=== PATIENT | female | born 1990 | race African-American/Black ===

== ENCOUNTER 2016-09-22 12:38 | Emergency (ER) | payer OTHER ==
[~2016-09-22] VITALS: Ht 157.5 cm; Wt 44.5 kg
[~2016-09-22 12:38] MED LIST: AMOX1TAB61 PO; FERR325T58 PO; HYDR-971 PO; NAPR500T3 PO; OXYC-323 PO; PNV1TABL25 PO
[2016-09-22] MEDS ORDERED: IV NORMAL SALINE 1000ML BAG 1,000 ML IV SCH (13:49)
[2016-09-22] MEDS ORDERED: ONDANSETRON PF 4 MG/2 ML VIAL. IV ONE (14:00)
[2016-09-22] MEDS ORDERED: MORPHINE SULFATE 4 MG/ML DISP.SYRIN. IV ONE (14:00)
[2016-09-22] MEDS ORDERED: IOHEXOL 300 MG/ML 75 ML VIAL IV ONE (14:15)
[2016-09-22] MEDS ORDERED: CONTRAST GIVEN MC PRN (14:15)
[2016-09-22 14:16] LABS: BILIRUBIN,URINE NEGATIVE (NEG); GLUCOSE,URINE NEGATIVE (NEG); NITRITE,URINE NEGATIVE (NEG); PROTEIN,URINE NEGATIVE (NEG-TRACE); UROBILINOGEN,URINE 0.2 mg/dL (0.2 mg/dL)
[2016-09-22 14:17] LABS: BASO % 0 % (0-3); EOS % 1 % (0-3); HEMATOCRIT 32.1 % (36.0-47.0); HEMOGLOBIN 10.5 g/dL (12.0-15.5); LYMPH # 1.5 x10^3/uL (1.0-4.8); LYMPH % 21 % (24-48); MEAN CORPUSCULAR HEMOGLOBIN 29 pg (25-35); MEAN CORPUSCULAR HGB CONC 33 g/dL (31-37); MEAN CORPUSCULAR VOLUME 90 fL (79-100); MONO % 6 % (0-9); NEUT % 72 % (31-73); PLATELET COUNT 189 x10^3/uL (140-400); RED BLOOD COUNT 3.58 x10^6/uL (3.50-5.40); RED CELL DISTRIBUTION WIDTH 14.3 % (11.5-14.5)
--- NOTE | 2016-09-22 14:21 | PHYS DOC ---
Past Medical History Past Medical History: Other Additional Past Medical Histor: scoliosis Past Surgical History: Alcohol Use: None Drug Use: None Adult General Chief Complaint Chief Complaint: ABDOMINAL PAIN HPI HPI Patient is a 26 year old female who presents with right lower quadrant pain. Patient reports she has had pain since last Thursday. She describes a stabbing/ cramping pain that is worse with movement. It ss accompanied by nausea and fatigue. She did vomit yesterday but none today. She took aspirin for yesterday with insufficient relief. Patient reports a similar episode a couple weeks ago that resolved spontaneously. No urinary symptoms, no vaginal bleeding or discharge. LMP started 09/18. Review of Systems Review of Systems Constitutional: Denies fever or chills Eyes: Denies change in visual acuity or eye pain HENT: Denies nasal congestion or sore throat Respiratory: Denies cough or shortness of breath Cardiovascular: Denies chest pain GI: RLQ abdominal pain, nausea. Denies bloody stools or diarrhea : Denies dysuria or hematuria. Denies vaginal bleeding or discharge Musculoskeletal: Denies back pain or joint pain Integument: Denies rash or skin lesions Neurologic: Denies headache, focal weakness or sensory changes Current Medications Current Medications Current Medications Medications (Trade) Dose Ordered Sig/Tiana Start Time Stop Time Status Last Admin Dose Admin Info (Do NOT chart on this entry -- for MONITORING) 1 each PRN DAILY PRN 09/22/16 14:15 09/22/16 15:26 DC Iohexol (Omnipaque 300 Mg/ml) 75 ml 1X ONCE 09/22/16 14:15 09/22/16 14:16 DC 09/22/16 14:21 75 ML Morphine Sulfate 2 mg 1X ONCE 09/22/16 14:00 09/22/16 14:01 DC 09/22/16 14:07 2 MG Ondansetron HCl (Zofran) 4 mg 1X ONCE 09/22/16 14:00 09/22/16 14:01 DC 09/22/16 14:06 4 MG Sodium Chloride (Iv Sodium Chloride 0.9% 1000ml Bag) 1,000 ml @ 1,000 mls/hr Q1H 09/22/16 13:49 09/22/16 14:48 DC 09/22/16 14:06 1,000 MLS/HR Allergies Allergies Allergies Coded Allergies Type Severity Reaction Last Updated Verified No Known Drug Allergies 09/22/16 No Physical Exam Physical Exam Constitutional: Well developed, well nourished, no acute distress, non-toxic appearance HENT: Normocephalic, atraumatic, bilateral external ears normal Eyes: EOMI, conjunctiva normal, no discharge Neck: Normal range of motion, no stridor Cardiovascular: Heart rate normal, regular rhythm, no murmur Lungs & Thorax: Bilateral breath sounds clear to auscultation Abdomen: Bowel sounds normal, soft, non-distended, RLQ TTP without rebound Skin: Warm, dry, no erythema, no rash Extremities: No obvious deformity, no edema Neurologic: Alert and oriented X 3, no gross deficits noted Psychologic: Affect normal, judgement normal, mood normal Current Patient Data Vital Signs Vital Signs Date Time Temp Pulse Resp B/P Pulse Ox O2 Delivery O2 Flow Rate FiO2 09/22/16 15:20 65 18 136/83 99 Room Air 09/22/16 12:43 98.0 98.0 Lab Values Laboratory Tests Test 09/22/16 12:16 09/22/16 13:00 09/22/16 14:07 POC Urine HCG, Qualitative Hcg negative (Negative) Urine Collection Type Unknown Urine Color Yellow Urine Clarity Clear Urine pH 6.0 Urine Specific [place] 1.025 Urine Protein Negativemg/dL (NEG-TRACE) Urine Glucose (UA) Negativemg/dL (NEG) Urine Ketones (Stick) Negativemg/dL (NEG) Urine Blood Moderate (NEG) Urine Nitrite Negative (NEG) Urine Bilirubin Negative (NEG) Urine Urobilinogen Dipstick 0.2mg/dL (0.2 mg/dL) Urine Leukocyte Esterase Small (NEG) Urine RBC 0/HPF (0-2) Urine WBC 1-4/HPF (0-4) Urine Squamous Epithelial Cells Mod/LPF Urine Bacteria Few/HPF (0-FEW) Urine Mucus Mod/LPF White Blood Count 7.0x10^3/uL (4.0-11.0) Red Blood Count 3.58x10^6/uL (3.50-5.40) Hemoglobin 10.5g/dL (12.0-15.5) L Hematocrit 32.1% (36.0-47.0) L Mean Corpuscular Volume 90fL (79-100) Mean Corpuscular Hemoglobin 29pg (25-35) Mean Corpuscular Hemoglobin Concent 33g/dL (31-37) Red Cell Distribution Width 14.3% (11.5-14.5) Platelet Count 189x10^3/uL (140-400) Neutrophils (%) (Auto) 72% (31-73) Lymphocytes (%) (Auto) 21% (24-48) L Monocytes (%) (Auto) 6% (0-9) Eosinophils (%) (Auto) 1% (0-3) Basophils (%) (Auto) 0% (0-3) Neutrophils # (Auto) 5.0x10^3uL (1.8-7.7) Lymphocytes # (Auto) 1.5x10^3/uL (1.0-4.8) Monocytes # (Auto) 0.4x10^3/uL (0.0-1.1) Eosinophils # (Auto) 0.1x10^3/uL (0.0-0.7) Basophils # (Auto) 0.0x10^3/uL (0.0-0.2) Sodium Level 143mmol/L (136-145) Potassium Level 3.5mmol/L (3.5-5.1) Chloride Level 106mmol/L (98-107) Carbon Dioxide Level 27mmol/L (21-32) Anion Gap 10 (6-14) Blood Urea Nitrogen 9mg/dL (7-20) Creatinine 0.7mg/dL (0.6-1.0) Estimated GFR (Cockcroft-Gault) 120.6 BUN/Creatinine Ratio 13 (6-20) Glucose Level 84mg/dL (70-99) Calcium Level 9.0mg/dL (8.5-10.1) Total Bilirubin 0.4mg/dL (0.2-1.0) Aspartate Amino Transferase (AST) 18U/L (15-37) Alanine Aminotransferase (ALT) 39U/L (14-59) Alkaline Phosphatase 46U/L (46-116) Total Protein 7.1g/dL (6.4-8.2) Albumin 3.7g/dL (3.4-5.0) Albumin/Globulin Ratio 1.1 (1.0-1.7) Lipase 135U/L (73-393) Laboratory Tests 09/22/16 14:07 Laboratory Tests 09/22/16 14:07 EKG EKG [] Radiology/Procedures Radiology/Procedures CT A/P: IMPRESSION: No acute abdominal or pelvic abnormality is detected. Course & Med Decision Making Course & Med Decision Making Pertinent Labs and Imaging studies reviewed. (See chart for details) Patient is 26-year-old female who presents with right lower quadrant pain. Must consider possibility of appendicitis. Will check labs, UA, CT abdomen/pelvis. IV fluids, nausea medication, pain medication ordered for relief of symptoms. Labs unremarkable; no leukocytosis. Imaging results as above. I spoke with the radiologist to confirm that there are no large ovarian cysts that could lead to ovarian torsion; no large cysts noted. Discussed results with patient. Will discharge with short course of pain medication, nausea medication, instructions for follow-up, return precautions. Dragon Disclaimer Dragon Disclaimer This electronic medical record was generated, in whole or in part, using a voice recognition dictation system. Departure Departure Impression: Primary Impression: RLQ abdominal pain Disposition: HOME, SELF-CARE Condition: IMPROVED Referrals: DOROTHY HICKMAN MD (PCP) Patient Instructions: Abdominal Pain, Women Additional Instructions: Thank you for allowing us to provide care today in the Emergency Department. Take the provided medication as directed. Use caution when taking the pain medication as it may make you drowsy. Schedule a follow up appointment with your primary care doctor to be seen this week. Return promptly to the Emergency Department if you develop any new or concerning symptoms. Scripts Ondansetron (Zofran Odt)4 Mg Tab.rapdis1 Tab SL Q8HRS PRN NAUSEA #10 TAB Prov:ROSEMARY BATISTA MD 09/22/16 Tramadol Hcl 50 Mg Phbrbi31 Mg PO Q6H PRN PAIN #20 TAB Prov:ROSEMARY BATISTA MD 09/22/16 ROSEMARY BATISTA MD Sep 22, 2016 14:21
[2016-09-22 14:27] LABS: RBC,URINE 0 /HPF (0-2)
[2016-09-22 14:28] LABS: CREATININE 0.7 mg/dL (0.6-1.0); GFR 120.6; POTASSIUM 3.5 mmol/L (3.5-5.1)
[2016-09-22 14:28] LABS: BACTERIA,URINE FEW /HPF (0-FEW); SQUAMOUS EPITHELIAL CELL,UR MOD /LPF
[2016-09-22 14:35] LABS: ALBUMIN 3.7 g/dL (3.4-5.0); ALBUMIN/GLOBULIN RATIO 1.1 (1.0-1.7); TOTAL BILIRUBIN 0.4 mg/dL (0.2-1.0); TOTAL PROTEIN 7.1 g/dL (6.4-8.2)
--- NOTE | 2016-09-22 14:49 | RAD ---
CT of the abdomen and pelvis with contrast, 09/22/2016: History: Right lower quadrant pain Multidetector CT imaging was performed following an IV bolus injection of iodinated contrast material. No oral contrast material was given as requested. This this can hinder evaluation of the abdominal structures, particularly in a thin patient such as this. The liver is unremarkable. No gallbladder abnormality is seen. No pancreatic abnormality is detected. The spleen is of normal size. The right kidney is slightly malrotated. The kidneys show no evidence of obstruction. There is a paucity of intra-abdominal fat in this patient the abdominal structures. The bowel loops are not dilated. The appendix cannot be specifically identified. No free fluid or free air is evident in the abdomen or pelvis. IMPRESSION: No acute abdominal or pelvic abnormality is detected. PQRS Compliance Statement: One or more of the following individualized dose reduction techniques were utilized for this examination: 1. Automated exposure control 2. Adjustment of the mA and/or kV according to patient size 3. Use of iterative reconstruction technique
[2016-09-22] MEDS ORDERED: ONDA4TAB10 SL (15:16)
[2016-09-22] MEDS ORDERED: TRAM50TA PO (15:16)
[2016-09-22 15:20] VITALS: BP 136/83
== END 2016-09-22 15:23 | disposition home or self-care (01) ==
LOC: ER 12:38
DX: R10.31 Right lower quadrant pain (principal); M41.9 Scoliosis, unspecified
CPT/HCPCS: 36415; 74177; 80053; 81001; 81025; 83690; 85027; 87086; 96361; 96374; 96375; 99285; J2270; J2405; J7030; Q9967

== ENCOUNTER 2016-12-08 07:39 | Day surgery (SDC) | payer OTHER ==
[~2016-12-08] VITALS: Ht 157.5 cm; Wt 43.5 kg
[~2016-12-08 07:39] MED LIST changes: +HYDROmorphone 2 MG/ML VIAL IV PRN; +IV RINGERS,LACTATED 1000ML 1,000 ML IV SCH; +LIDOCAINE 1% 1 ML SYRINGE. ID PRN; +MORPHINE SULFATE 2 MG/ML DISP.SYRIN. IV PRN; +ONDA4TAB10 SL; +ONDANSETRON PF 4 MG/2 ML VIAL. IV PRN; +PROCHLORPERAZINE 10 MG/2 ML VIAL. IV PRN; +TRAM50TA PO; +fentaNYL PF VIAL 100 MCG/2 ML VIAL IV PRN
[2016-12-08] MEDS ORDERED: LIDOCAINE 2% PF Vial for OR 5 ML VIAL. ONE (08:06)
[2016-12-08] MEDS ORDERED: PROPOFOL 20 ML IV ONE (08:06)
[2016-12-08] MEDS ORDERED: ROCURONIUM 50 MG/5 ML VIAL. ONE (08:07)
[2016-12-08] MEDS ORDERED: fentaNYL PF VIAL 100 MCG/2 ML VIAL ONE ×2 (08:07→09:46)
[2016-12-08] MEDS ORDERED: GLYCOPYRROLATE 1 MG/5 ML VIAL. ONE (08:07)
[2016-12-08] MEDS ORDERED: MIDAZOLAM HCL/PF 2 MG/2 ML VIAL. ONE (08:07)
[2016-12-08] MEDS ORDERED: KETOROLAC 30 MG/ML INJ FOR OR. INJ ONE (08:07)
[2016-12-08] MEDS ORDERED: ONDANSETRON PF 4 MG/2 ML VIAL. ONE (08:07)
[2016-12-08] MEDS ORDERED: DEXAMETHASONE SOD PHOS 20 MG/5 ML VIAL. ONE (08:07)
[2016-12-08] MEDS ORDERED: NEOSTIGMINE METHYLSULFATE 5 MG/5 ML SYRINGE. ONE (08:08)
[2016-12-08 08:13] LABS: BASO % 1 % (0-3); EOS % 3 % (0-3); HEMOGLOBIN 10.8 g/dL (12.0-15.5); LYMPH # 1.6 x10^3/uL (1.0-4.8); LYMPH % 30 % (24-48); MEAN CORPUSCULAR HEMOGLOBIN 29 pg (25-35); MEAN CORPUSCULAR HGB CONC 33 g/dL (31-37); MEAN CORPUSCULAR VOLUME 87 fL (79-100); MONO % 9 % (0-9); NEUT % 57 % (31-73); PLATELET COUNT 211 x10^3/uL (140-400); RED BLOOD COUNT 3.77 x10^6/uL (3.50-5.40); RED CELL DISTRIBUTION WIDTH 14.7 % (11.5-14.5); WHITE BLOOD COUNT 5.2 x10^3/uL (4.0-11.0)
[2016-12-08 08:22] LABS: CALCIUM 8.7 mg/dL (8.5-10.1); CREATININE 0.8 mg/dL (0.6-1.0); GFR 103.3; POTASSIUM 4.2 mmol/L (3.5-5.1)
[2016-12-08] MEDS ORDERED: BUPIVAC MPF-EPI 0.5%-1:200000 30 ML VIAL. ONE (08:25)
[2016-12-08 08:26] LABS: PROTHROMBIN TIME PATIENT 12.8 SEC (11.7-14.0)
[2016-12-08 08:28] LABS: ALBUMIN 3.8 g/dL (3.4-5.0); ALBUMIN/GLOBULIN RATIO 1.1 (1.0-1.7); TOTAL BILIRUBIN 0.2 mg/dL (0.2-1.0); TOTAL PROTEIN 7.3 g/dL (6.4-8.2)
[2016-12-08 08:52] LABS: NEG OBC UR NEG; POS OBC UR POS
--- NOTE | 2016-12-08 09:14 | PDOC ---
SURGICAL PROGRESS NOTE Subjective op Note: surgeon.................................................Mariusz Pre op diag............................................incarcerated umbilical hernia Postop diag...........................................same Anesthesia............................................General Procedure.............................................Repair incarcerated umbilical hernia Blood loss.............................................5cc drains...................................................none fluids....................................................see anesthesia sheet condition..............................................satisfactory Vital Signs Vital Signs Date Time Temp Pulse Resp B/P (MAP) Pulse Ox O2 Delivery O2 Flow Rate FiO2 6/5/17 08:01 98.9 69 18 106/50 100 Room Air 98.9 Labs Laboratory Tests Test 12/08/16 06:30 12/08/16 08:00 Urine Test Negative (NEG) White Blood Count 5.2 x10^3/uL (4.0-11.0) Red Blood Count 3.77 x10^6/uL (3.50-5.40) Hemoglobin 10.8 g/dL (12.0-15.5) Hematocrit 33.0 % (36.0-47.0) Mean Corpuscular Volume 87 fL (79-100) Mean Corpuscular Hemoglobin 29 pg (25-35) Mean Corpuscular Hemoglobin Concent 33 g/dL (31-37) Red Cell Distribution Width 14.7 % (11.5-14.5) Platelet Count 211 x10^3/uL (140-400) Neutrophils (%) (Auto) 57 % (31-73) Lymphocytes (%) (Auto) 30 % (24-48) Monocytes (%) (Auto) 9 % (0-9) Eosinophils (%) (Auto) 3 % (0-3) Basophils (%) (Auto) 1 % (0-3) Neutrophils # (Auto) 3.0 x10^3uL (1.8-7.7) Lymphocytes # (Auto) 1.6 x10^3/uL (1.0-4.8) Monocytes # (Auto) 0.5 x10^3/uL (0.0-1.1) Eosinophils # (Auto) 0.2 x10^3/uL (0.0-0.7) Basophils # (Auto) 0.0 x10^3/uL (0.0-0.2) Prothrombin Time 12.8 SEC (11.7-14.0) Prothromb Time International Ratio 1.0 (0.8-1.1) Sodium Level 142 mmol/L (136-145) Potassium Level 4.2 mmol/L (3.5-5.1) Chloride Level 107 mmol/L (98-107) Carbon Dioxide Level 26 mmol/L (21-32) Anion Gap 9 (6-14) Blood Urea Nitrogen 14 mg/dL (7-20) Creatinine 0.8 mg/dL (0.6-1.0) Estimated GFR (Cockcroft-Gault) 103.3 BUN/Creatinine Ratio 18 (6-20) Glucose Level 95 mg/dL (70-99) Calcium Level 8.7 mg/dL (8.5-10.1) Total Bilirubin 0.2 mg/dL (0.2-1.0) Aspartate Amino Transf (AST/SGOT) 42 U/L (15-37) Alanine Aminotransferase (ALT/SGPT) 62 U/L (14-59) Alkaline Phosphatase 61 U/L (46-116) Total Protein 7.3 g/dL (6.4-8.2) Albumin 3.8 g/dL (3.4-5.0) Albumin/Globulin Ratio 1.1 (1.0-1.7) Laboratory Tests Test 12/08/16 06:30 12/08/16 08:00 Urine Test Negative (NEG) White Blood Count 5.2 x10^3/uL (4.0-11.0) Red Blood Count 3.77 x10^6/uL (3.50-5.40) Hemoglobin 10.8 g/dL (12.0-15.5) Hematocrit 33.0 % (36.0-47.0) Mean Corpuscular Volume 87 fL (79-100) Mean Corpuscular Hemoglobin 29 pg (25-35) Mean Corpuscular Hemoglobin Concent 33 g/dL (31-37) Red Cell Distribution Width 14.7 % (11.5-14.5) Platelet Count 211 x10^3/uL (140-400) Neutrophils (%) (Auto) 57 % (31-73) Lymphocytes (%) (Auto) 30 % (24-48) Monocytes (%) (Auto) 9 % (0-9) Eosinophils (%) (Auto) 3 % (0-3) Basophils (%) (Auto) 1 % (0-3) Neutrophils # (Auto) 3.0 x10^3uL (1.8-7.7) Lymphocytes # (Auto) 1.6 x10^3/uL (1.0-4.8) Monocytes # (Auto) 0.5 x10^3/uL (0.0-1.1) Eosinophils # (Auto) 0.2 x10^3/uL (0.0-0.7) Basophils # (Auto) 0.0 x10^3/uL (0.0-0.2) Prothrombin Time 12.8 SEC (11.7-14.0) Prothromb Time International Ratio 1.0 (0.8-1.1) Sodium Level 142 mmol/L (136-145) Potassium Level 4.2 mmol/L (3.5-5.1) Chloride Level 107 mmol/L (98-107) Carbon Dioxide Level 26 mmol/L (21-32) Anion Gap 9 (6-14) Blood Urea Nitrogen 14 mg/dL (7-20) Creatinine 0.8 mg/dL (0.6-1.0) Estimated GFR (Cockcroft-Gault) 103.3 BUN/Creatinine Ratio 18 (6-20) Glucose Level 95 mg/dL (70-99) Calcium Level 8.7 mg/dL (8.5-10.1) Total Bilirubin 0.2 mg/dL (0.2-1.0) Aspartate Amino Transf (AST/SGOT) 42 U/L (15-37) Alanine Aminotransferase (ALT/SGPT) 62 U/L (14-59) Alkaline Phosphatase 61 U/L (46-116) Total Protein 7.3 g/dL (6.4-8.2) Albumin 3.8 g/dL (3.4-5.0) Albumin/Globulin Ratio 1.1 (1.0-1.7) LENKA GARCIA MD Dec 08, 2016 09:14
--- NOTE | 2016-12-08 10:11 | HP ---
ADMIT DATE: 12/08/2016 HISTORY OF PRESENT ILLNESS: I am asked to see this patient by Dr. Dorsey because of a painful mass at the umbilicus. She has had this mass for some time, and she has had 3 C-sections and simply has painful mass. PAST MEDICAL HISTORY: Shows normal childhood diseases. No high blood pressure, cancer, TB, asthma, or diabetes. ALLERGIES: She has no allergies. MEDICATIONS: She takes no medicine. PAST SURGICAL HISTORY: She has had 3 C-sections in the past. FAMILY HISTORY: Noncontributory. SOCIAL HISTORY: She smokes marijuana but no cigarettes and does not drink and uses no illicit drugs. REVIEW OF SYSTEMS: Except for the umbilical pain, she has no other symptoms. PHYSICAL EXAMINATION: GENERAL: Shows a slender female in no acute distress. HEAD, EARS, EYES, NOSE, AND THROAT: Grossly normal. CHEST: Clear bilaterally to auscultation. HEART: No murmurs, heaves, friction rubs, or thrills, and the rate is 73 beats minute. It is regular. ABDOMEN: Soft. She does have a diastasis rectus which is nontender. She also has an umbilical hernia which was obvious when she stands up. Could not get it to fully reduced, and there was some tenderness there when palpated it. EXTREMITIES: Grossly normal. PELVIC: Not done. IMPRESSION: 1. Diastasis rectus. 2. Incarcerated umbilical hernia. LENKA GARCIA MD DR: STORM/ilia JOB#: [id number] / [id number]
[2016-12-08] MEDS ORDERED: SEVOFLURANE 61 TO 120 MINUTES. IH ONE (10:17)
[2016-12-08] MEDS ORDERED: HYDR-2666 PO (10:43)
[2016-12-08] MEDS ORDERED: HYDROcodone/APAP 5/325MG 1 TAB TABLET PO ONE (11:00)
[2016-12-08 11:55] VITALS: BP 148/82
--- NOTE | 2016-12-08 15:24 | OP ---
DATE OF SURGERY: SURGEON: Vincent Garcia MD PREOPERATIVE DIAGNOSIS: Incarcerated umbilical hernia. POSTOPERATIVE DIAGNOSIS: Incarcerated umbilical hernia with a large diastasis rectus. ANESTHESIA: General. PROCEDURE: Repair of incarcerated umbilical hernia. TECHNIQUE: Under anesthesia, the patient was properly prepped and draped in routine fashion. Supraumbilical incision was made, carried through the skin in transverse fashion following the skin lines. We then went through this with a 15-blade and then dissected into the subQ using Metzenbaum scissors. We used skin hooks and retractors to retract the skin edges and then went around the hernia sac that was going to the umbilicus and totally went around it with a Vance drain posteriorly. We then took the sac off the anterior abdominal wall and then entered the sac. There were adhesions in there as she has had 3 C-sections and with adhesions, we never entered the peritoneal cavity and pushed out everything away with finger. We then having opened a size of redundant sac of scar tissue and then approximated the skin edges making certain not to injure any intraabdominal contents as we had entered the abdomen. We used #0 interrupted Prolene for these as ____. Marcaine 0.5% with epinephrine was used as these were pulled up, so as not to injure any intraabdominal contents then we anesthetized this surgical area. We then tacked the umbilicus down to the fascia and after all the sutures had been covered and buried using interrupted 4-0 Vicryl, the skin was closed using a subcuticular 5-0 Vicryl and the procedure was terminated. Dermabond was used and then a standard dressing was applied. The procedure was now terminated. BLOOD LOSS: Less than 5-10 mL. FLUIDS GIVEN: Can be obtained from the anesthesia sheet. DRAINS: No drains were used. CONDITION OF THE PATIENT: Satisfactory as she is returned to the recovery room. VINCENT GARCIA MD DR: STORM/ilia JOB#: [id number] / [id number]
== END 2016-12-08 12:24 | disposition home or self-care (01) ==
LOC: SURG 07:39
PROVIDERS: ATTEND Specialist
DX: K42.0 Umbilical hernia with obstruction, without gangrene (principal); Z79.01 Long term (current) use of anticoagulants; Z83.3 Family history of diabetes mellitus
CPT/HCPCS: 36415; 49587; 80053; 81025; 85027; 85610; A4215; J0690; J1100; J1885; J2250; J2405; J2704; J2710; J3010; J3490; J7120

== ENCOUNTER 2017-02-06 09:30 | Emergency (ER) | payer OTHER ==
[~2017-02-06 09:30] MED LIST changes: +HYDR-2758 PO; -HYDROmorphone 2 MG/ML VIAL IV PRN; -IV RINGERS,LACTATED 1000ML 1,000 ML IV SCH; -LIDOCAINE 1% 1 ML SYRINGE. ID PRN; -MORPHINE SULFATE 2 MG/ML DISP.SYRIN. IV PRN; -ONDANSETRON PF 4 MG/2 ML VIAL. IV PRN; -PROCHLORPERAZINE 10 MG/2 ML VIAL. IV PRN; -fentaNYL PF VIAL 100 MCG/2 ML VIAL IV PRN
[2017-02-06 09:59] LABS: BILIRUBIN,URINE NEGATIVE (NEG); GLUCOSE,URINE NEGATIVE (NEG); NITRITE,URINE NEGATIVE (NEG); PH,URINE 6.5; PROTEIN,URINE NEGATIVE (NEG-TRACE); UROBILINOGEN,URINE 0.2 mg/dL (0.2 mg/dL)
[2017-02-06 10:10] LABS: BACTERIA,URINE FEW /HPF (0-FEW)
[2017-02-06 10:11] LABS: SQUAMOUS EPITHELIAL CELL,UR FEW /LPF
[2017-02-06 10:27] LABS: BASO % 1 % (0-3); EOS % 2 % (0-3); HEMATOCRIT 31.9 % (36.0-47.0); HEMOGLOBIN 10.6 g/dL (12.0-15.5); LYMPH # 1.7 x10^3/uL (1.0-4.8); LYMPH % 29 % (24-48); MEAN CORPUSCULAR HEMOGLOBIN 29 pg (25-35); MEAN CORPUSCULAR HGB CONC 33 g/dL (31-37); MEAN CORPUSCULAR VOLUME 88 fL (79-100); MONO % 9 % (0-9); NEUT % 60 % (31-73); PLATELET COUNT 213 x10^3/uL (140-400); RED BLOOD COUNT 3.64 x10^6/uL (3.50-5.40); RED CELL DISTRIBUTION WIDTH 16.7 % (11.5-14.5); WHITE BLOOD COUNT 5.8 x10^3/uL (4.0-11.0)
[2017-02-06 10:37] LABS: CALCIUM 8.8 mg/dL (8.5-10.1); CREATININE 0.7 mg/dL (0.6-1.0); GFR 120.6; POTASSIUM 3.6 mmol/L (3.5-5.1)
[2017-02-06 10:43] LABS: ALBUMIN 3.9 g/dL (3.4-5.0); ALBUMIN/GLOBULIN RATIO 1.2 (1.0-1.7); TOTAL BILIRUBIN 0.3 mg/dL (0.2-1.0); TOTAL PROTEIN 7.2 g/dL (6.4-8.2)
--- NOTE | 2017-02-06 11:17 | RAD ---
Early OB ultrasound 02/06/2017 Clinical indication: Vaginal bleeding. Comparison: None. Findings: Transabdominal and transvaginal evaluation of the pelvis. Uterus measures 9.0 x 4.4 x 5.3 cm. There is a single intrauterine gestational sac measuring up to 0.8 cm with no identifiable pole or yolk sac compatible with estimated gestational age of 5 weeks and 4 days. Right ovary is present measuring 3.6 x 1.8 x 2.3 cm with normal color Doppler imaging. Left ovary is present measuring 4.1 x 3.1 x 2.6 cm with normal color Doppler imaging. There is a small simple appearing left ovarian cystic structure, likely physiologic follicle. No significant pelvic free fluid. Impression: Single intrauterine gestational sac with no identifiable pole or yolk sac, and may be due to early dates ,with estimated gestational age of 5 weeks 4 days. Close clinical follow-up is recommended.
[2017-02-06] MEDS ORDERED: METR500T PO (11:46)
--- NOTE | 2017-02-06 11:46 | PHYS DOC ---
Past Medical History Past Medical History: Other Additional Past Medical Histor: scoliosis Past Surgical History: Alcohol Use: None Drug Use: None Adult General Chief Complaint Chief Complaint: VAGINAL BLEEDING HPI HPI Patient is a 26 year old female presenting to the emergency department for vaginal bleeding in early . She thinks that she is approximately 8 weeks' based off her dates and she is with 3 prior C-sections. She says that she had mild spotting last night and then had sex this morning and the bleeding became more noticeable. Mild pelvic discomfort but denies any fevers chills nausea vomiting dysuria or hematuria. She is in no obvious distress with normal vital signs and plans to follow with Dr. Dorsey as her OB. Review of Systems Review of Systems Constitutional: Denies fever or chills [] Cardiovascular: No additional information not addressed in HPI [] GI: Denies abdominal pain, nausea, vomiting, bloody stools or diarrhea [] : Denies dysuria or hematuria [] Musculoskeletal: Denies back pain or joint pain [] Allergies Allergies Allergies Coded Allergies Type Severity Reaction Last Updated Verified No Known Drug Allergies 12/08/16 No Physical Exam Physical Exam Constitutional: Well developed, well nourished, no acute distress, non-toxic appearance. [] Cardiovascular:Heart rate regular rhythm, no murmur [] Lungs & Thorax: Bilateral breath sounds clear to auscultation [] Abdomen: Bowel sounds normal, soft, no tenderness, no masses, no pulsatile masses. [] TALENT COORDINATOR: Mild bleeding coming from the cervical os with minimal cervical motion and adnexal tenderness. Cervical os appears closed. Current Patient Data Vital Signs Vital Signs Date Time Temp Pulse Resp B/P (MAP) Pulse Ox O2 Delivery O2 Flow Rate FiO2 02/06/17 11:02 98.6 97 16 129/65 (86) 100 Room Air 98.6 Lab Values Laboratory Tests Test 02/06/17 08:51 02/06/17 09:39 02/06/17 10:10 POC Urine HCG, Qualitative Hcg positive (Negative) Urine Collection Type Unknown Urine Color Yellow Urine Clarity Clear Urine pH 6.5 Urine Specific [place] 1.020 Urine Protein Negative mg/dL (NEG-TRACE) Urine Glucose (UA) Negative mg/dL (NEG) Urine Ketones (Stick) Negative mg/dL (NEG) Urine Blood Negative (NEG) Urine Nitrite Negative (NEG) Urine Bilirubin Negative (NEG) Urine Urobilinogen Dipstick 0.2 mg/dL (0.2 mg/dL) Urine Leukocyte Esterase Trace (NEG) Urine RBC 1-2 /HPF (0-2) Urine WBC 1-4 /HPF (0-4) Urine Squamous Epithelial Cells Few /LPF Urine Bacteria Few /HPF (0-FEW) Urine Mucus Mod /LPF White Blood Count 5.8 x10^3/uL (4.0-11.0) Red Blood Count 3.64 x10^6/uL (3.50-5.40) Hemoglobin 10.6 g/dL (12.0-15.5) L Hematocrit 31.9 % (36.0-47.0) L Mean Corpuscular Volume 88 fL (79-100) Mean Corpuscular Hemoglobin 29 pg (25-35) Mean Corpuscular Hemoglobin Concent 33 g/dL (31-37) Red Cell Distribution Width 16.7 % (11.5-14.5) H Platelet Count 213 x10^3/uL (140-400) Neutrophils (%) (Auto) 60 % (31-73) Lymphocytes (%) (Auto) 29 % (24-48) Monocytes (%) (Auto) 9 % (0-9) Eosinophils (%) (Auto) 2 % (0-3) Basophils (%) (Auto) 1 % (0-3) Neutrophils # (Auto) 3.5 x10^3uL (1.8-7.7) Lymphocytes # (Auto) 1.7 x10^3/uL (1.0-4.8) Monocytes # (Auto) 0.5 x10^3/uL (0.0-1.1) Eosinophils # (Auto) 0.1 x10^3/uL (0.0-0.7) Basophils # (Auto) 0.0 x10^3/uL (0.0-0.2) Maternal Serum HCG Beta Subunit 3552 mIU/mL (0-5) H Sodium Level 142 mmol/L (136-145) Potassium Level 3.6 mmol/L (3.5-5.1) Chloride Level 106 mmol/L (98-107) Carbon Dioxide Level 25 mmol/L (21-32) Anion Gap 11 (6-14) Blood Urea Nitrogen 5 mg/dL (7-20) L Creatinine 0.7 mg/dL (0.6-1.0) Estimated GFR (Cockcroft-Gault) 120.6 BUN/Creatinine Ratio 7 (6-20) Glucose Level 100 mg/dL (70-99) H Calcium Level 8.8 mg/dL (8.5-10.1) Total Bilirubin 0.3 mg/dL (0.2-1.0) Aspartate Amino Transferase (AST) 37 U/L (15-37) Alanine Aminotransferase (ALT) 83 U/L (14-59) H Alkaline Phosphatase 47 U/L (46-116) Total Protein 7.2 g/dL (6.4-8.2) Albumin 3.9 g/dL (3.4-5.0) Albumin/Globulin Ratio 1.2 (1.0-1.7) Laboratory Tests 02/06/17 10:10 Laboratory Tests 02/06/17 10:10 Microbiology 02/06/17 Wet Prep - Final, Complete EKG EKG [] Radiology/Procedures Radiology/Procedures Early OB ultrasound 02/06/2017 Clinical indication: Vaginal bleeding. Comparison: None. Findings: Transabdominal and transvaginal evaluation of the pelvis. Uterus measures 9.0 x 4.4 x 5.3 cm. There is a single intrauterine gestational sac measuring up to 0.8 cm with no identifiable pole or yolk sac compatible with estimated gestational age of 5 weeks and 4 days. Right ovary is present measuring 3.6 x 1.8 x 2.3 cm with normal color Doppler imaging. Left ovary is present measuring 4.1 x 3.1 x 2.6 cm with normal color Doppler imaging. There is a small simple appearing left ovarian cystic structure, likely physiologic follicle. No significant pelvic free fluid. Impression: Single intrauterine gestational sac with no identifiable pole or yolk sac, and may be due to early dates ,with estimated gestational age of 5 weeks 4 days. Close clinical follow-up is recommended. DICTATED and SIGNED BY: YEYO CARRILLO MD DATE: 02/06/17 1109 Course & Med Decision Making Course & Med Decision Making Patient with vaginal bleeding in early . At this point it is a threatened miscarriage as no definitive heart tones are noted. Patient will be discharged with instructions to follow with the OB in the next 2-3 days for repeat hCG level and to come back to the ER with worsening pain fevers vomiting or other general concerns. Of note blood type is A+ some no Rhogam needed at this time. Dragon Disclaimer Dragon Disclaimer This electronic medical record was generated, in whole or in part, using a voice recognition dictation system. Departure Departure Impression: Primary Impression: Threatened miscarriage Additional Impression: Bacterial vaginosis Disposition: HOME, SELF-CARE Condition: GOOD Referrals: DOROTHY HICKMAN MD (PCP) LUKE DORSEY MD Patient Instructions: Threatened Miscarriage Additional Instructions: PRACTICE PELVIC REST. TAKE THE ANTIBIOTICS FOR BACTERIAL VAGINOSIS. FOLLOW WITH THE OB DOCTOR ON THURSDAY FOR RE-EVALUATION. THANK YOU! Scripts Metronidazole (FLAGYL) 500 Mg Tablet 1 TAB PO BID, #14 TAB Prov: VU ARORA DO 02/06/17 Problem Qualifiers VU ARORA DO Feb 06, 2017 11:46
[2017-02-06 12:06] VITALS: BP 125/82
== END 2017-02-06 12:08 | disposition home or self-care (01) ==
LOC: ER 09:30
DX: O20.0 Threatened abortion (principal); O23.591 Infection of other part of genital tract in pregnancy, first trimester; N76.0 Acute vaginitis; B96.89 Other specified bacterial agents as the cause of diseases classified elsewhere; Z3A.08 8 weeks gestation of pregnancy
CPT/HCPCS: 76801; 76817; 80053; 81001; 81025; 84702; 85027; 86850; 86900; 86901; 87086; 99285; Q0111

== ENCOUNTER 2017-06-30 10:44 | Emergency (ER) | payer OTHER ==
[2017-06-30 11:02] LABS: URINE HCG POC HCG POSITIVE (Negative)
== END 2017-06-30 11:14 | disposition home or self-care (01) ==
LOC: ER 10:44
DX: O26.891 Other specified pregnancy related conditions, first trimester (principal); H66.92 Otitis media, unspecified, left ear; Z3A.08 8 weeks gestation of pregnancy
CPT/HCPCS: 81025; 99283

== ENCOUNTER → 2017-09-16 | Outpatient (CLI) | payer OTHER | END | disposition home or self-care (01) | LOC: US 14:13 | DX: O09.92 Supervision of high risk pregnancy, unspecified, second trimester (principal); O26.842 Uterine size-date discrepancy, second trimester; Z3A.20 20 weeks gestation of pregnancy | CPT/HCPCS: 76805; 76817 ==

== ENCOUNTER → 2018-05-03 | Outpatient (CLI) | payer OTHER ==
[2018-02-05 13:50] VITALS: BP 122/79
[~2018-05-03] MED LIST changes: +AMOX875T PO; +CONTRAST GIVEN. MC PRN; +DOCU-109 PO; +IBUP800T19 PO; +IOHEXOL 240 MG/ML 50ML VIAL. PO ONE; +IOHEXOL 300 MG/ML 100ML VIAL. IV ONE; +METR500T PO; +NAPR-514 PO; -NAPR500T3 PO
--- NOTE | 2018-05-03 12:05 | RAD ---
CT ABD PELV W/ORAL IV CONTRAST Indication: VENTRAL HERNIA
IV OMNI 300 75 MLS AND PO OMNI 240 50 MLS
PREVIOUS
Exposure: One or more of the following individualized dose reduction techniques were utilized for this examination: 1. Automated exposure control 2. Adjustment of the mA and/or kV according to patient size 3. Use of iterative reconstruction technique. Comparison: September 22, 2016 Contrast: Intravenous contrast was given. Oral contrast was given. FINDINGS: Lower thorax: Lung bases are clear. Liver: Unremarkable Spleen: Unremarkable Pancreas: Unremarkable Adrenals: No evidence of mass. Kidneys: No obvious mass. Urinary tracts: No hydronephrosis. Gallbladder: No calcified stone Lymph nodes: No significant enlargement Vessels: Aorta is nonaneurysmal. GI tract: Moderate retained stool throughout the colon. Wall thickening of the rectum and distal sigmoid colon. No evidence of small bowel obstruction. Appendix is normal. Reproductive organs:No evidence of mass. Urinary bladder: Unremarkable. Peritoneum: No evidence of pneumoperitoneum. No free fluid. Abdominal wall: Defect at the anterior abdominal wall midline in the umbilical area and just above the umbilical area. There is protruding loop of transverse colon here. Spine: Vertebral body height and alignment are intact. Bones: No destructive process identified. IMPRESSION: 1. Moderate constipation. 2. Anterior abdominal wall defect or hernia with a slightly protruding transverse colon, at and just above the umbilicus. Electronically signed by: Jose Tomlinson MD (05/03/2018 12:02 PM) [id number]
== END | disposition home or self-care (01) ==
LOC: CT 13:12
PROVIDERS: ATTEND Specialist
DX: K43.9 Ventral hernia without obstruction or gangrene (principal); K59.09 Other constipation
CPT/HCPCS: 74177; Q9966; Q9967

== ENCOUNTER 2018-06-24 07:36 | Day surgery (SDC) | payer OTHER ==
[~2018-06-24 07:36] MED LIST changes: -CONTRAST GIVEN. MC PRN; -HYDR-2758 PO; +HYDR-2761 PO; +HYDR-3164 PO; -HYDR-971 PO; +HYDROmorphone 2 MG/ML VIAL IV PRN; -IOHEXOL 240 MG/ML 50ML VIAL. PO ONE; -IOHEXOL 300 MG/ML 100ML VIAL. IV ONE; +IV RINGERS,LACTATED 1000ML 1,000 ML IV SCH; +LIDOCAINE 1% PF 2 ML VIAL. ID PRN; +MORPHINE SULFATE 2 MG/ML VIAL. IV PRN; +ONDANSETRON PF 4 MG/2 ML VIAL. IV PRN; -OXYC-323 PO; +OXYC1TAB15 PO; +PROCHLORPERAZINE 10 MG/2 ML VIAL. IV PRN; +fentaNYL PF VIAL 100 MCG/2 ML VIAL IV PRN
[2018-06-24 07:59] LABS: U PREG PATIENT NEGATIVE (NEG)
[2018-06-24] MEDS ORDERED: ROCURONIUM 50 MG/5 ML VIAL. ONE (08:39)
[2018-06-24] MEDS ORDERED: ONDANSETRON PF 4 MG/2 ML VIAL. ONE (08:39)
[2018-06-24] MEDS ORDERED: DEXAMETHASONE SOD PHOS 20 MG/5 ML VIAL. ONE (08:39)
[2018-06-24] MEDS ORDERED: LIDOCAINE 2% PF Vial for OR 5 ML VIAL. ONE (08:39)
[2018-06-24] MEDS ORDERED: PROPOFOL 20 ML IV ONE (08:39)
[2018-06-24] MEDS ORDERED: fentaNYL PF VIAL 100 MCG/2 ML VIAL ONE ×2 (08:40→11:20)
[2018-06-24] MEDS ORDERED: BUPIVAC MPF-EPI 0.5%-1:200000 30 ML VIAL. ONE (09:57)
[2018-06-24] MEDS ORDERED: GLYCOPYRROLATE 1 MG/5 ML VIAL. ONE (10:42)
[2018-06-24] MEDS ORDERED: NEOSTIGMINE METHYLSULFATE 5 MG/5 ML SYRINGE. ONE (10:42)
[2018-06-24] MEDS ORDERED: SEVOFLURANE 61 TO 120 MINUTES. IH ONE (10:43)
[2018-06-24] MEDS ORDERED: KETOROLAC 30 MG/ML INJ FOR OR. INJ ONE (10:43)
--- NOTE | 2018-06-24 11:05 | PDOC ---
BRIEF OPERATIVE NOTE Date: Jun 24, 2018 Pre-Op Diagnosis Sterilization Post-Op Diagnosis SAme Procedure Performed [facility] BTL Surgeon Dr. Ortiz Anesthesia Type: General Blood Loss 5 ml Specimens Obtained none Findings nml size uterus with adhesions to abdominal wall; nml ovaries viktor., fallopian tube adhesions to pelvic side wall as well. Complications none Operative Note see dictation SUE ORTIZ Jr, MD Jun 24, 2018 11:05
--- NOTE | 2018-06-24 11:06 | DISCH ---
DISCHARGE INSTRUCTIONS Condition on Discharge Condition on Discharge: Stable Activity After Discharge Activity Instructions for Disc: Activity as tolerated, Other, see below Bathing Instructions: Shower-keep dressing dry, No Tub Bath until see Lifting Instructions after Dis: No heavy lifting, No pulling or pushing, Do not lift >10 pounds Exercise Instruction after Dis: Progress as tolerated Driving Instructions after Dis: Do not drive today Weight Bearing Status after Di: No restrictions Diet after Discharge Diet after Discharge: Regular Diet Texture: Regular Liquid Texture: Thin Liquid Wound Incision Care Wound/Incision Care: Ice to area for comfort Contacting the [facility] after DC Call your doctor for: If your condition worsens Follow-Up Follow up with: Dr. Ortiz in 1 week. Treatment/Equipment after DC Adaptive Equipment Issued: None SUE ORTIZ Jr, MD Jun 24, 2018 11:06
--- NOTE | 2018-06-24 11:16 | OP ---
DATE OF SURGERY: 06/24/2018 PREOPERATIVE DIAGNOSIS: Sterilization. POSTOPERATIVE DIAGNOSIS: Sterilization. PROCEDURE: Laparoscopic BTL with Filshie clips. SURGEON: Jair Ortiz MD. ANESTHESIA: GETA. ESTIMATED BLOOD LOSS: Less than 5 mL. COMPLICATIONS: None. FINDINGS: Normal size uterus with adhesions to the abdominal wall and normal ovaries, fallopian tube adhesions to the pelvic sidewall as well. SUMMARY: A 27-year-old female who desired permanent sterilization, was counseled on risks, benefits and expectations as well as the failure rate and voiced clear understanding to proceed. DESCRIPTION OF PROCEDURE: The patient was taken to surgery suite and placed in dorsal lithotomy position. She was prepped with Betadine solution for vaginal prep and ChloraPrep for abdominal prep. After adequate anesthesia, bivalve speculum was placed vaginally. Anterior lip of the cervix grasped with single tooth tenaculum. Uterine [employer] manipulator was then placed. The bivalve speculum was removed. Attention was now placed on abdomen. A small transverse skin incision made just below the umbilicus. A Veress needle was then placed through the infraumbilical incision site. The abdomen was allowed to insufflate up to 1-1/2 liters CO2 gas. The Veress needle was then removed, 5 mm trocar was placed. The scope was positioned. The uterus was normal size, but adhesed to the abdominal wall. There were also pelvic sidewall adhesions involving the right fallopian tube. Both ovaries appeared normal. A second incision was made in the left lower quadrant through which an 8 mm trocar was placed. With the aid of the Filshie clip applicator, the Filshie clip was applied to the isthmus region of the left fallopian tube totally occluding the fallopian tube. The right fallopian tube due to the multiple adhesions a clip was placed closer to the cornual region of the fallopian tube totally occluding the fallopian tube. The trocars were removed under direct visualization. Abdomen was allowed to deflate as much as possible along with mechanical manipulation. The two skin incisions were reapproximated using 4-0 Vicryl suture in subcuticular manner, 0.5% Marcaine with epinephrine was injected at each incision site. Uterine [employer] manipulator and single tooth tenaculum were removed. The patient tolerated the procedure well and was taken to recovery room in stable condition. Sponge and needle count correct x 3. JAIR ORTIZ MD DR: BLESSING/ilia JOB#: [id number] / [id number]
[2018-06-24] MEDS: fentaNYL PF VIAL 100 MCG/2 ML VIAL IV PRN ×2 (11:23→11:46)
[2018-06-24 12:05] VITALS: BP 120/69
[2018-06-24] MEDS ORDERED: oxyCODONE/APAP 5/325 1 TAB TABLET PO ONE ×2 (12:15→13:45)
== END 2018-06-24 13:55 | disposition home or self-care (01) ==
LOC: SURG 07:36
PROVIDERS: ATTEND Obstetrics & Gynecology
DX: Z30.2 Encounter for sterilization (principal); N73.6 Female pelvic peritoneal adhesions (postinfective); Z98.890 Other specified postprocedural states; M41.9 Scoliosis, unspecified
CPT/HCPCS: 58671; 81025; A4264; A7015; J1100; J1885; J2001; J2405; J2704; J2710; J3010; J3490

== ENCOUNTER → 2018-09-24 | Outpatient (CLI) | payer OTHER ==
[~2018-09-24] MED LIST changes: -HYDROmorphone 2 MG/ML VIAL IV PRN; -IV RINGERS,LACTATED 1000ML 1,000 ML IV SCH; -LIDOCAINE 1% PF 2 ML VIAL. ID PRN; -MORPHINE SULFATE 2 MG/ML VIAL. IV PRN; -ONDANSETRON PF 4 MG/2 ML VIAL. IV PRN; -PROCHLORPERAZINE 10 MG/2 ML VIAL. IV PRN; -fentaNYL PF VIAL 100 MCG/2 ML VIAL IV PRN
--- NOTE | 2018-09-24 08:58 | RAD ---
Indication:PELVIC PAIN TECHNIQUE: Grayscale, color Doppler and spectral waveform images of the pelvis obtained. COMPARISON:None FINDINGS: The uterus is retroverted and measures 8.8 x 3.9 x 5.7 cm (longitudinal, AP, transverse). Endometrial stripe measures 1 cm in thickness and is within normal limits. Right ovary measures 4.1 x 2.8 x 3.0 cm with a 2.0 x 2.0 x 2.2 cm cyst with internal low-level echoes and pericardial vascularity. Right ovary demonstrates evidence of blood flow. Left ovary measures 2.4 x 2.2 x 2.4 cm with multiple follicles and demonstrates evidence of blood flow. No free pelvic fluid. IMPRESSION: 1. Bilateral ovaries demonstrate evidence of blood flow. 2. Complex cyst in the right ovary likely hemorrhagic cyst. Follow-up ultrasound in 8-12 weeks recommended. Electronically signed by: Chaparro Machado DO (09/24/2018 8:55 AM) [facility]
== END | disposition home or self-care (01) ==
LOC: US 07:35
PROVIDERS: ATTEND Obstetrics & Gynecology
DX: N83.291 Other ovarian cyst, right side (principal)
CPT/HCPCS: 76830; 76856